=== PATIENT | male | born 2000 | race Asian ===

== ENCOUNTER 2025-07-07 23:56 | Emergency (ER) | payer BC ==
[~2025-07-07] VITALS: Ht 185.4 cm; Wt 80.0 kg
[2025-07-08 00:12] VITALS: O2SAT 98
[2025-07-08 01:07] VITALS: BP 116/65; PULSE 53; RESP 18; TEMP 36.9; O2SAT 100
== END 2025-07-08 02:13 | disposition left against medical advice (07) ==
LOC: ER 23:56
DX: S00.12XA Contusion of left eyelid and periocular area, initial encounter (principal); X58.XXXA Exposure to other specified factors, initial encounter; Y93.89 Activity, other specified; Y92.89 Other specified places as the place of occurrence of the external cause; Y99.8 Other external cause status
CPT/HCPCS: 99281